=== PATIENT | female | born 1975 | race Two or more races ===

== ENCOUNTER 2024-01-07 15:54 | Emergency (ER) | payer OTHER, MEDICAID ==
[2024-01-07 17:05] LABS: BASOPHILS ABSOLUTE AUTO 0.04 K/uL (0.00-0.20); BASOPHILS PERCENT AUTO 0.4 % (0.0-1.0); EOSINOPHILS ABSOLUTE AUTO 0.01 K/uL (0.00-0.45); EOSINOPHILS PERCENT AUTO 0.1 % (0.0-6.0); HEMATOCRIT 40.8 % (37.0-47.0); HEMOGLOBIN 13.4 g/dL (12.0-16.0); IMMATURE GRAN ABSOLUTE AUTO 0.03 K/uL (0.00-0.05); IMMATURE GRAN PERCENT AUTO 0.3 % (0.0-0.4); LYMPHOCYTES ABSOLUTE AUTO 1.46 K/uL (1.00-4.80); LYMPHOCYTES PERCENT AUTO 15.4 % (24.0-44.0); MEAN CORPUSCULAR HEMOGLOBIN 26.9 pg (28.0-32.0); MEAN CORPUSCULAR HGB CONC 32.8 g/dL (32.0-36.0); MEAN CORPUSCULAR VOLUME 81.9 fL (83.0-99.0); MEAN PLATELET VOLUME 8.8 fL (9.4-12.3); MONOCYTES ABSOLUTE AUTO 0.92 K/uL (0.00-0.80); MONOCYTES PERCENT AUTO 9.7 % (0.0-8.0); NEUTROPHILS ABSOLUTE AUTO 7.04 K/uL (1.80-7.70); NEUTROPHILS PERCENT AUTO 74.1 % (41.0-71.0); PLATELET COUNT,PLT 272 K/uL (150-400); RED BLOOD CELL COUNT 4.98 M/uL (4.10-5.30)
[2024-01-07] MEDS: Sodium Chloride 0.9% 1,000 ML IV ONE (17:23)
[2024-01-07] MEDS: Ketorolac 30 MG/ML SDV IVPUSH ONE (17:24)
[2024-01-07 17:37] LABS: A/G RATIO 0.7 (0.9-1.6); ALBUMIN 3.4 g/dL (3.4-5.0); CALCIUM 9.5 mg/dL (8.5-10.1); CARBON DIOXIDE,CO2 24.7 mmol/L (21.0-32.0); CREATININE 1.1 mg/dL (0.6-1.0); EST CRCL DRUG DOSING (CG) 57.28 mL/min; POTASSIUM,K 3.5 mmol/L (3.5-5.1)
[2024-01-07 17:39] LABS: LACTIC ACID 1.3 mmol/L (0.4-2.0)
[2024-01-07 17:43] LABS: CORONAVIRUS COVID-19 NAA NEGATIVE (NEGATIVE); INFLUENZA A NAA NEGATIVE (NEGATIVE); INFLUENZA B NAA NEGATIVE (NEGATIVE)
[2024-01-07 18:14] LABS: GLUCOSE,URINE NEGATIVE (NEGATIVE); KETONES,URINE 40 mg/dL (NEGATIVE); LEUKOCYTE ESTERASE,URINE MODERATE (NEGATIVE); NITRITE,URINE NEGATIVE (NEGATIVE); OCCULT BLOOD,URINE MODERATE (NEGATIVE); PROTEIN,URINE 30 mg/dL (NEGATIVE)
[2024-01-07 18:25] LABS: APPEARANCE,URINE CLOUDY; BACTERIA,URINE FEW (NEGATIVE); BILIRUBIN,URINE SMALL (NEGATIVE); COLOR,URINE DARK YELLOW; EPITHELIAL CELLS,URINE FEW (NONE-FEW); MUCUS,URINE OCCASIONAL (NONE-MOD); WBC,URINE 18-26 (0-5/HPF)
[2024-01-07 18:26] LABS: RBC,URINE 0-2 (0-2/HPF)
[2024-01-07] MEDS: cefTRIAXone 2 GM in Sodium Chloride 0.9% 50 ML IV STA (19:26)
== END 2024-01-07 20:17 | disposition home or self-care (01) ==
LOC: MW.ED 15:54
DX: N39.0 Urinary tract infection, site not specified (principal); Z79.899 Other long term (current) drug therapy; Z75.8 Other problems related to medical facilities and other health care
CPT/HCPCS: 0240U; 36415; 71045; 74176; 80053; 81001; 81025; 83605; 85025; 87086; 87088; 87186; 96361; 96365; 96375; 99284; J0696; J1885; J3490; J7030